=== PATIENT | female | born 1945 | race Caucasian/White ===

== ENCOUNTER 2017-09-18 19:01 | Inpatient (IN) ==
--- NOTE | 2017-09-18 19:14 | Emergency Department Note ---
Disposition Clinical Impression: NSTEMI (non-ST elevated myocardial infarction) Chest pain Qualifiers: Chest pain type: other chest pain Qualified Code(s): R07.89 - Other chest pain Disposition: Admitted As Inpatient Condition: Fair Time of Disposition: 23:13 Chest Pain HPI - General Chief Complaint: ED Chest Pain Stated Complaint: cp/right arm/right shoulder Time Seen by Provider: 09/18/17 19:04 Source: patient, EMS Mode of arrival: EMS Limitations: no limitations Vital Signs Reviewed: Yes Nursing Notes Reviewed: Yes - History of Present Illness HPI Narrative: Patient presenting to the ED via EMS and was seen and evaluated immediately upon arrival. Patient presenting with the chief complaint of chest pain and right arm pain. Patient was just admitted to the hospital last week for a heart catheter and stent placement. After independent medical record review. Patient is scheduled for a more extensive For a LAD lesion with possible CABG. She states that she was discharged home and felt okay until earlier this evening when she started developing a heavy tightness in her chest. She states that there is a separate pain in her right shoulder and shoulder blade. This radiating down her arm. She states that it is associated with the pain but that the shoulder pain was going on before she needed her stent, so she is not sure of this is related to her heart again or not. She has had no swelling in the arm or changes in color or sensation. There is no weakness. States she feels like if she could move her shoulder blade out of place that it would help. She states that she feels slightly nauseated at times but otherwise has been feeling well. Severity scale (1-10): 10 - Related Data Home Medications Medication Instructions Recorded Confirmed Aspirin [Adult Low Dose Aspirin EC] 81 mg PO DAILY 03/09/16 09/18/17 Furosemide [Lasix] 20 mg PO DAILY PRN 03/09/16 09/18/17 Insulin Glargine [Lantus] 90 unit SQ QAM 03/09/16 09/18/17 Levothyroxine Sodium [Tirosint] 125 mcg PO QAM 03/09/16 09/18/17 Insulin Glargine [Lantus] 55 unit SQ QPM 09/10/17 09/18/17 Previous Rx's Medication Instructions Recorded Atorvastatin [Lipitor] 80 mg PO HS 30 Days #30 tablet 09/13/17 Carvedilol [Coreg] 12.5 mg PO BIDWM 30 Days #60 tablet 09/13/17 Lisinopril-HCTZ 10-12.5 [Prinzide 1 each PO DAILY #30 tablet 09/13/17 10-12.5] Ticagrelor [Brilinta] 90 mg PO BID #60 tablet 09/13/17 amLODIPine [Norvasc] 10 mg PO DAILY 30 Days #30 tablet 09/13/17 Allergies Allergy/AdvReac Type Severity Reaction Status Date / Time Latex, Natural Rubber AdvReac Nausea Verified 09/18/17 19:05 morphine AdvReac Vomiting Verified 09/18/17 19:05 IV Dye AdvReac Vomiting Uncoded 09/18/17 19:05 Constitutional: Denies: fever Eyes: Denies: vision change Cardiovascular: Reports: chest pain. 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 Absent: normal inspection - Chest Chest inspection: Present: normal inspection, symmetric chest wall rise - Respiratory Respiratory exam: Present: normal lung sounds bilaterally - Cardiovascular Cardiovascular exam: Present: regular rate, normal rhythm, normal heart sounds - Abdominal Exam Abdominal exam: Present: soft, Non-Tender. Absent: tenderness, distention, guarding, rebound, rigidity - Extremities Exam Extremities exam: Present: tenderness (Patient has diffuse nonspecific tenderness to her right arm extending from her shoulder down to her wrist. There are a few small hematomas from previous IV draws. There is no crepitus, erythema, warmth or signs of trauma.) - Neurological Exam Neurological exam: Present: alert, oriented X3 - Psychiatric Psychiatric exam: Present: normal affect, normal mood - Skin Skin exam: Present: warm, dry, intact, normal color Course Course Narrative: 72-year-old female presenting for chest pain and right arm pain. Had a heart catheter a week ago with stent placement, but needs further PCI to her LAD. We will certainly get a chest pain workup and admit. Patient had aspirin via EMS. She also received nitroglycerin EMS - Reevaluation(s) Reevaluation #1: Patient has an elevation in troponin, already had aspirin via EMS. We will get red, approximately ultrasound due to pain to rule out thrombosis. Ultrasound reportedly negative. We will admit to the hospitalist service. Vital Signs Temperature 98.2 F 09/18/17 19:05 Pulse Rate 70 09/18/17 19:05 Respiratory Rate 20 09/18/17 19:05 Blood Pressure 205/106 09/18/17 19:05 O2 Sat by Pulse Oximetry 99 09/18/17 19:05 Temperature 98.0 F 09/19/17 03:12 Pulse Rate 74 09/19/17 03:12 Respiratory Rate 20 09/19/17 03:12 Blood Pressure 179/82 09/19/17 03:12 O2 Sat by Pulse Oximetry 92 09/19/17 03:12 Oxygen Delivery Oxygen Delivery Room Air Chest Pain - Medical Records Medical records reviewed: Yes I reviewed the patient's medical records. - Lab Data Lab results reviewed: Yes I reviewed the patient's lab results. Result diagrams: 09/18/17 19:32 09/19/17 01:01 Lab Results 09/18/17 09/18/17 09/18/17 Range/Units 19:32 19:32 19:32 WBC 8.4 (4.3-11.1) K/mcL RBC 4.44 (3.82-4.97) M/mcL Hgb 12.9 D (11.5-15.4) g/dL Hct 39.2 (35.3-44.9) % MCV 88.3 (83.0-100.0) fL MCH 29.1 (28.0-33.3) pg MCHC 32.9 (31.6-35.5) g/dL RDW 13.1 (11.5-14.5) % Plt Count 250 (140-400) K/mcL MPV 11.2 (9.4-12.4) fL Immature Gran % 0.5 (0-4) % Seg Neutrophils % 70.3 % Lymphocytes % 16.2 % Monocytes % 9.2 % Eosinophils % 3.4 % Basophils % 0.4 % Neutrophils # 5.9 (1.6-8.9) K/mcL Lymphocytes # 1.4 (0.6-4.6) K/mcL Monocytes # 0.8 (0.0-1.3) K/mcL Eosinophils # 0.3 (0.0-0.6) K/mcL Basophils # 0.0 (0.0-0.2) K/mcL Immature Plt Fraction 6.3 H (1.1-6.1) % PT 11.2 (9.4-12.1) Seconds INR 1.0 APTT 29.1 (26.0-36.0) Seconds Sodium (136-145) mEq/L Potassium (3.5-4.5) mEq/L Chloride (98-109) mEq/L Carbon Dioxide (19-29) mEq/L BUN (7-20) mg/dL Creatinine (0.57-1.11) mg/dL Est GFR ( Amer) (> 60) Est GFR (Non-Af Amer) (> 60) BUN/Creatinine Ratio (6-26) Glucose (70-99) mg/dL Calculated Osmolality (280-300) Calcium (8.6-10.8) mg/dL Troponin I (0-0.03) ng/mL B-Natriuretic Peptide 38 (0-100) pg/mL Urine Color (Yellow) Urine Clarity (Clear) Urine pH (5.0-8.0) pH Units Ur Specific [place] (1.010-1.025) Urine Protein (Neg-Trace) mg/dL Urine Glucose (UA) (Normal) mg/dL Urine Ketones (Negative) mg/dL Urine Blood (Negative) Urine Nitrite (Negative) Urine Bilirubin (Negative) Urine Urobilinogen (Normal) mg/dL Ur Leukocyte Esterase (Negative) Urine Microscopic RBC (0-3) per hpf Urine Microscopic WBC (0-3) per hpf Ur Squamous Epith Cells (None-Few) per lpf Urine Bacteria (None-Few) per hpf Hyaline Casts (None-Few) per lpf Ur Culture Indicated? (NO) 09/18/17 09/18/17 09/18/17 Range/Units 19:32 19:32 23:05 WBC (4.3-11.1) K/mcL RBC (3.82-4.97) M/mcL Hgb (11.5-15.4) g/dL Hct (35.3-44.9) % MCV (83.0-100.0) fL MCH (28.0-33.3) pg MCHC (31.6-35.5) g/dL RDW (11.5-14.5) % Plt Count (140-400) K/mcL MPV (9.4-12.4) fL Immature Gran % (0-4) % Seg Neutrophils % % Lymphocytes % % Monocytes % % Eosinophils % % Basophils % % Neutrophils # (1.6-8.9) K/mcL Lymphocytes # (0.6-4.6) K/mcL Monocytes # (0.0-1.3) K/mcL Eosinophils # (0.0-0.6) K/mcL Basophils # (0.0-0.2) K/mcL Immature Plt Fraction (1.1-6.1) % PT (9.4-12.1) Seconds INR APTT (26.0-36.0) Seconds Sodium 138 (136-145) mEq/L Potassium 3.5 (3.5-4.5) mEq/L Chloride 103 (98-109) mEq/L Carbon Dioxide 24 (19-29) mEq/L BUN 18 (7-20) mg/dL Creatinine 1.35 H (0.57-1.11) mg/dL Est GFR ( Amer) 47 L (> 60) Est GFR (Non-Af Amer) 38 L (> 60) BUN/Creatinine Ratio 13 (6-26) Glucose 122 H (70-99) mg/dL Calculated Osmolality 289 (280-300) Calcium 9.3 (8.6-10.8) mg/dL Troponin I 0.11 H* (0-0.03) ng/mL B-Natriuretic Peptide (0-100) pg/mL Urine Color Yellow (Yellow) Urine Clarity Clear (Clear) Urine pH 6.0 (5.0-8.0) pH Units Ur Specific [place] 1.017 (1.010-1.025) Urine Protein 100 H (Neg-Trace) mg/dL Urine Glucose (UA) Normal (Normal) mg/dL Urine Ketones Negative (Negative) mg/dL Urine Blood Negative (Negative) Urine Nitrite Negative (Negative) Urine Bilirubin Negative (Negative) Urine Urobilinogen Normal (Normal) mg/dL Ur Leukocyte Esterase Negative (Negative) Urine Microscopic RBC 0-3 (0-3) per hpf Urine Microscopic WBC 0-3 (0-3) per hpf Ur Squamous Epith Cells Many H (None-Few) per lpf Urine Bacteria None Seen (None-Few) per hpf Hyaline Casts None Seen (None-Few) per lpf Ur Culture Indicated? NO (NO) - Radiology Data Radiology results reviewed: Yes I reviewed the patient's radiology results. - EKG Data EKG attestation: Yes I reviewed and interpreted this EKG. EKG results narrative: Sinus rhythm, rate 70, MO interval 190, QRS 86, QTC 417, normal axis, no acute ischemic changes. S.B.A.R. - S.B.A.R. Situation: Demographics, MOA Background: Presenting Complaint, Relevant PMH, Meds, & Allergies Assessment: Vital Signs, Course and respsone to treatment, Exam Concerns, Patient/Family Expectation, Pertinant Lab Results, Outstanding Labs Recommendation: Barrier(s) to disposition, Recommendation based on pending studies, treatments, or consults S.B.A.R. Report Given to: Hospitalist service S.B.A.Burke Repor Time: 23:14 Attestation Statement - Attestation Attestation: I examined this patient and my medical decision-making was reviewed with the Resident Physician. I agree with the documented findings, disposition and treatment plan as described except to the extent set forth below. Chest pain, recent angioplasty. She did have 1 lesion that was not amenable to stenting. She is scheduled to be stented next week. Plan admit for possible anginal colon to an ACS rule out.
[2017-09-18 19:45] LABS: Basophils % 0.4 %; Eosinophils # 0.3 K/mcL (0.0-0.6); Eosinophils % 3.4 %; Hematocrit 39.2 % (35.3-44.9); Immature Granulocytes % 0.5 % (0-4); Immature Platelets 6.3 % (1.1-6.1); Lymphocytes # 1.4 K/mcL (0.6-4.6); Lymphocytes % 16.2 %; Mean Corpuscular HGB Conc 32.9 g/dL (31.6-35.5); Mean Corpuscular Hemoglobin 29.1 pg (28.0-33.3); Mean Corpuscular Volume 88.3 fL (83.0-100.0); Mean Platelet Volume 11.2 fL (9.4-12.4); Monocytes # 0.8 K/mcL (0.0-1.3); Monocytes % 9.2 %; Neutrophils # 5.9 K/mcL (1.6-8.9); Platelet Count 250 K/mcL (140-400); Red Blood Count 4.44 M/mcL (3.82-4.97); Red Cell Distribution Width 13.1 % (11.5-14.5); Segmented Neutrophils % 70.3 %
[2017-09-18 19:47] LABS: Hemoglobin 12.9 g/dL (11.5-15.4)
[2017-09-18 19:51] LABS: Prothrombin Time 11.2 Seconds (9.4-12.1)
[2017-09-18 19:53] LABS: Activated Partial Thrombo Time 29.1 Seconds (26.0-36.0)
[2017-09-18 19:58] LABS: Calcium 9.3 mg/dL (8.6-10.8); Potassium 3.5 mEq/L (3.5-4.5)
[2017-09-18] MEDS ORDERED: Ondansetron 4 MG/2 ML VIAL IVP ONE (20:17)
[2017-09-18] MEDS ORDERED: *HR* HYDROmorphone (PF) 1 MG/ML SYRINGE IVP ONE (20:17)
[2017-09-18 23:10] LABS: Bilirubin,Urine Negative (Negative); Blood,Urine Negative (Negative); Clarity,Urine Clear (Clear); Color,Urine Yellow (Yellow); Glucose,Urine (UA) Normal (Normal); Ketones,Urine Negative (Negative); Leukocyte Esterase,Urine Negative (Negative); Nitrite,Urine Negative (Negative); Protein,Urine 100 mg/dL (Neg-Trace); Specific Gravity,Urine 1.017 (1.010-1.025); Urobilinogen,Urine Normal (Normal)
[2017-09-18 23:12] LABS: Bacteria,Urine None Seen per hpf (None-Few); Hyaline Casts,Urine None Seen per lpf (None-Few); RBC,Urine 0-3 per hpf (0-3); Squamous Epithelial Cell,Urine Many per lpf (None-Few); WBC,Urine 0-3 per hpf (0-3)
[2017-09-19] MEDS ORDERED: *HR* Heparin 5,000 UNIT/ML VIAL IVP PRN ×2 (00:43)
[2017-09-19] MEDS ORDERED: Naloxone 0.4 MG/ML INJ IVP PRN (00:43)
[2017-09-19] MEDS ORDERED: Nitroglycerin 0.4 MG TAB.SUBL SL PRN (00:43)
[2017-09-19] MEDS ORDERED: *HR* HYDROmorphone (PF) 1 MG/ML SYRINGE IVP PRN (00:43)
[2017-09-19] MEDS ORDERED: Ondansetron 4 MG/2 ML VIAL IVP PRN (00:43)
[2017-09-19] MEDS ORDERED: Acetaminophen 325 MG TABLET PO PRN (00:43)
[2017-09-19] MEDS ORDERED: Heparin 25,000 UNIT/500 ML D5W 25,000 UNIT/500 ML MLS IVC SCH (00:45)
[2017-09-19] MEDS ORDERED: Furosemide 20 MG TABLET PO PRN (00:53)
--- NOTE | 2017-09-19 00:59 | Internal Med History&Physical ---
Date of Encounter: 09/19/17 Time of Encounter: 00:57 Assessment and Plan (1) Chest pain Current visit: Yes Status: Acute With elevated troponins, consider possible non-STEMI History of CAD with LAD lesion. Start heparin drip, may discontinue after evaluation by cardiology (call needs to be placed in the morning) Continue aspirin, Brilinta, carvedilol, Lipitor, nitroglycerin as needed Omeprazole for GI prophylaxis and heparin drip for DVT prophylaxis. The patient will be admitted for observation. Full code. Time spent on this admission 40 minutes. 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; 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; Z79.4 - 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 supervisor ( current) use of insulin (3) Elevated troponin Current visit: No Status: Acute (4) Right shoulder pain Current visit: No Status: Chronic Dilaudid as needed Qualifiers: Chronicity: chronic Qualified Code(s): M25.511 - Pain in right shoulder; G89.29 - Other chronic pain; G89.29 - Other chronic pain (5) Chronic kidney disease Current visit: No Status: Chronic Qualifiers: Chronic kidney disease stage: stage 3 (moderate) Qualified Code(s): N18.3 - Chronic kidney disease, stage 3 (moderate) (6) Hypertension Current visit: Yes Status: Acute Continue blood pressure medications from home Qualifiers: Hypertension type: essential hypertension Qualified Code(s): I10 - Essential (primary) hypertension Internal Medicine - H&P: HPI Chief complaint: Chest pain Admitted From: Emergency Dept History of present illness: Ms. Jay is a 72 year old female with a past medical history of CAD status post stents was recently discharged from this hospital on 09/13/2017 where she was treated for non-STEMI. On September 12 she had a cardiac catheterization where a CHRISTIN was placed on the left circumflex and received PTCA to the mid LAD. Apparently, she required to have another heart catheterization to take care of her LAD lesion which was scheduled for the seventh of this month. The patient complain of right shoulder pain but also chest pressure 3 out of 10 in intensity. Her troponin is 0.11, EKG did not show any acute changes. Describes chest tightness/very heavy. Also a DVT was ruled out for the right upper extremity with venous duplex, final report is pending. Denies any other complaint Past Med Surg Social Fam HX - Past Medical History Medical history: arthritis, coronary artery disease (Status post stents), diabetes (Insulin-dependent), hyperlipidemia, hypertension, thyroid disease ( Hypothyroidism), other (Chronic kidney disease stage III, fibromyalgia, diastolic dysfunction) Psychiatric history: no psych history - Past Surgical History Surgical History: carotid endarterectomy, cholecystectomy, hysterectomy, other ( Right knee replacement, carpal tunnel syndrome surgery,) - Social History Smoking Status: Former smoker Smokeless Tobacco Status: No Alcohol use: none Drug use: none - Family History Father Hx Family Cancer: Yes Hx Family Endocrine Disorder: Yes (diabetes) Hx Family Neurologic Disorders: Yes (CVA) Mother Hx Family Cardiac Disorders: Yes Hx Family Cancer: Yes - Additional Family History Additional family history: Father with diabetes and CVA Internal Medicine - H&P: Meds Aspirin [Adult Low Dose Aspirin EC] 81 mg PO DAILY 03/09/16 [History] Furosemide [Lasix] 20 mg PO DAILY PRN 03/09/16 [History] Insulin Glargine [Lantus] 90 unit SQ QAM 03/09/16 [History] Levothyroxine Sodium [Tirosint] 125 mcg PO QAM 03/09/16 [History] Insulin Glargine [Lantus] 55 unit SQ QPM 09/10/17 [History] Atorvastatin [Lipitor] 80 mg PO HS 30 Days #30 tablet 09/13/17 [Rx] Carvedilol [Coreg] 12.5 mg PO BIDWM 30 Days #60 tablet 09/13/17 [Rx] Lisinopril-HCTZ 10-12.5 [Prinzide 10-12.5] 1 each PO DAILY #30 tablet 09/13/17 [ Rx] Ticagrelor [Brilinta] 90 mg PO BID #60 tablet 09/13/17 [Rx] amLODIPine [Norvasc] 10 mg PO DAILY 30 Days #30 tablet 09/13/17 [Rx] 3 Allergy/AdvReac Type Severity Reaction Status Date / Time Latex, Natural Rubber AdvReac Nausea Verified 09/18/17 19:05 morphine AdvReac Vomiting Verified 09/18/17 19:05 IV Dye AdvReac Vomiting Uncoded 09/18/17 19:05 All Systems PM: A 10-system review of systems was performed and is negative for pertinent findings except as documented above in the HPI. Review of systems: No abdominal pain, shortness of breath. Other systems out of the 10 reviewed were negative - Constitutional Vitals: Temp Pulse Resp BP Pulse Ox 98.0 F 61 16 150/76 97 09/19/17 00:22 09/19/17 00:22 09/19/17 00:22 09/19/17 00:22 09/19/17 00:22 General appearance: Present: A&O X 3, morbidly obese - Head Head exam: Present: atraumatic, normocephalic - Eye Eye exam: Present: PERRL, conjuntiva pink, sclera anicteric Pupils: Present: PERRL - Neck Neck exam general surgery: Present: supple, trachea midline. Absent: lymphadenopathy - Respiratory Respiratory exam: Present: CTAB. Absent: accessory muscle use, rales, rhonchi, wheezes - Cardiovascular Cardiovascular exam: Present: RRR, +S1, +S2. Absent: diastolic murmur, gallop, rubs, systolic murmur - GI/Abdominal GI/Abdominal exam: Present: normal bowel sounds, soft, no peritoneal signs. Absent: distended, tenderness - Extremities Exam Extremities exam: Present: warm, radial pulses palpable and symmetrical. Absent : calf tenderness, cyanotic, pedal edema - Neurological Exam Neurological exam: Present: CN II-XII intact, oriented X3, no focal deficits. Absent: pronater drift, facial droop, speech deficit - Skin Skin exam: Present: dry, intact Internal Med - H&P Results - Labs CBC & Chem 7: 09/18/17 19:32 09/18/17 19:32
[2017-09-19 01:29] LABS: Chol/HDL Ratio 2.8 (0-4.9)
[2017-09-19] MEDS: 0.9 % Sodium Chloride 1,000 ML IVC SCH ×3 (02:31→15:37)
--- NOTE | 2017-09-19 08:03 | Electrocardiograph Report ---
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
--- NOTE | 2017-09-19 08:07 | Electrocardiograph Report ---
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
[2017-09-19] MEDS ORDERED: Insulin DETEMIR 100 UNIT/ML X5UNITS SQ SCH ×2 (09:00→18:00)
[2017-09-19] MEDS ORDERED: amLODIPine 5 MG TABLET PO SCH (09:00)
[2017-09-19] MEDS ORDERED: *HR* Ticagrelor 90 MG TABLET PO SCH (09:00)
[2017-09-19] MEDS ORDERED: Aspirin Enteric Coated 81 MG Tablet PO SCH (09:00)
[2017-09-19] MEDS ORDERED: NON-FORMULARY MEDICATION 1 EACH EACH (Insulin Glargine [Lantus] 90 UNIT) SQ SCH (09:00)
--- NOTE | 2017-09-19 09:26 | Cardiology Consult Note ---
Date of Encounter: 09/19/17 Time of Encounter: 08:30 Assessment and Plan (1) Essential hypertension Current Visit: No Status: Chronic Per cardiology: -Known HTN. Recent admission for hypertensive emergency. -BP on admission 216/103. -Current SBP 170s. -States has not been monitoring BP at home. -On norvasc 10mg daily, coreg 12.5mg BID, lisinopril/HCTZ 10/12.5mg. -Will increase lisinopril to 20mg daily. Will given extra dose of 10mg of lisinopril now to total 20mg today. -Will continue to monitor. (2) Elevated troponin Current Visit: No Status: Acute Per cardiology: -Troponins 0.11, 0.08, 0.05 in the setting of hypertension. -BP 216/103 cde admission. -On heparin drip. -Reports right arm/shoulder pain and pain across chest. States similar to previous symptoms. -Denies current pain. -ECG with no ischemic changes. -Recommended for staged PCI on 09/25/17. -Creatinine 1.31, about baseline. -No not suspect NSTEMI, suspect demand ischemia related to above. Patient is enrolled in cardiac rehab from previous admission. -Will review [facility] films with , possible LHC today or tomorrow, pending better BP control. -Will given one time dose of solu-medrol now for IVP dye allergy, in case able to do LHC today. -Will start imdur daily. (3) CAD (coronary artery disease) Current Visit: Yes Status: Chronic Per cardiology: -Known CAD with LHC 09/12/17 with 95% and 90% stenosis mid LAD with balloon angioplasty with residual stenosis of 80% and 85%, 95% mid circumflex with CHRISTIN placed, 50% mid RCA. Recommended for staged PCI with athrectomy, scehduled on . -TTE 09/11/17 with LVEF 60-65%, mild concentric LVH, mild diastolic dysfunction , mild MR, mild TR, all wall segments with normal motion. -On asa, statin, beta baldomero, and brilinta. -Denies missed doses of medications. -Educated on importance of dual anti-platelet therapy uninterrupted for at least one year. Patient states understanding. -Possible LHC today pending film review and better BP control. Qualifiers: Coronary Disease-Associated Artery/Lesion type: [place] artery [place] vs. transplanted heart: [place] heart Associated angina: with unspecified angina Qualified Code(s): I25.119 - Atherosclerotic heart disease of [place] coronary artery with unspecified angina pectoris Discussion w patient/family: The assessment and plan as outlined above was discussed with the patient who expressed understanding and agreement. All questions were answered. Thank you for involving us in the care of your patient. Please call with any questions. Discussed and reviewed with . History of Present Illness Consult date: 09/19/17 Requesting physician: Warren Ruffin Consult reason: elevated troponin Chief complaint: right arm pain History of present illness: Ms. Jay is a 72 year old female with a relevant past medical history of CAD s/ p recent PCI, DM, hypothyroidism, HTN, "irregular heart beat," and carotid stenosis. Patient recently underwent LHC and was recommended for staged PCI. Procedure was scheduled for 09/25/17. Patient states she was at home yesterday when she had the same symptoms as last week. Patient states she was sitting when she had right arm and shoulder pain. Patient states mild pain across chest. Patient denies aggravating or alleviating symptoms. Patient denies exertional symptoms since discharge. Patient reports she has not been checking her BP at home. Patient denies current chest pain or right arm/shoulder pain. Patient denies increased shortness of breath and states her fatigue has been improving since discharge. Patient denies missing any doses of dual anti- platelet therapy. Past Med Surg Social Fam HX - Past Medical History Attestation: Yes The following information was validated with the patient. Source: patient, old records reviewed Medical history: arthritis, coronary artery disease, diabetes, hyperlipidemia, hypertension, thyroid disease Psychiatric history: no psych history - Past Surgical History Surgical History: carotid endarterectomy, hysterectomy - Social History Smoking Status: Former smoker Smokeless Tobacco Status: No Alcohol use: none Drug use: none - Family History Father Hx Family Cancer: Yes Hx Family Endocrine Disorder: Yes (diabetes) Hx Family Neurologic Disorders: Yes (CVA) Mother Hx Family Cardiac Disorders: Yes Hx Family Cancer: Yes Medications and Allergies Aspirin [Adult Low Dose Aspirin EC] 81 mg PO DAILY 03/09/16 [History] Furosemide [Lasix] 20 mg PO DAILY PRN 03/09/16 [History] Insulin Glargine [Lantus] 90 unit SQ QAM 03/09/16 [History] Levothyroxine Sodium [Tirosint] 125 mcg PO QAM 03/09/16 [History] Insulin Glargine [Lantus] 55 unit SQ QPM 09/10/17 [History] Atorvastatin [Lipitor] 80 mg PO HS 30 Days #30 tablet 09/13/17 [Rx] Carvedilol [Coreg] 12.5 mg PO BIDWM 30 Days #60 tablet 09/13/17 [Rx] Lisinopril-HCTZ 10-12.5 [Prinzide 10-12.5] 1 each PO DAILY #30 tablet 09/13/17 [ Rx] Ticagrelor [Brilinta] 90 mg PO BID #60 tablet 09/13/17 [Rx] amLODIPine [Norvasc] 10 mg PO DAILY 30 Days #30 tablet 09/13/17 [Rx] 3 Allergy/AdvReac Type Severity Reaction Status Date / Time Latex, Natural Rubber AdvReac Nausea Verified 09/18/17 19:05 morphine AdvReac Vomiting Verified 09/18/17 19:05 IV Dye AdvReac Vomiting Uncoded 09/18/17 19:05 All Systems Review: A 10-system review of systems was performed and is negative for pertinent findings except as documented above in the HPI. - Cardiovascular Cardiovascular: as per HPI, chest pain at rest - Musculoskeletal Musculoskeletal: other (Right arm/shoulder pain) Physical Examination Vital Signs, Last 4 Hours Temp Pulse Resp BP Pulse Ox 09/19/17 08:51 97 09/19/17 06:52 98.4 F 72 16 173/84 97 General: Conversant, No Apparent Distress HEENT: Atraumatic, Normocephaly, Mucus Membranes Moist Neck: No JVD, Normal carotid pulses Cardiac: Reg Rate and Rhythm, Normal S1 and S2, No Murmur Lungs: Normal Breath Sounds, No Wheeze, Rales, Rhonchi Neuro: Alert and responsive, No focal deficits noted Abdomen: Soft, Non-Tender Skin: No rashes noted on visualized skin Musculoskeletal: No Chest Wall Tenderness Extremities: No Clubbing, No Cyanosis, No Edema, Normal Pulses Results 09/18/17 19:32 09/19/17 01:01 Lab Results Impressions Chest X-Ray 09/18/17 19:09 IMPRESSION: No acute process. D/ / Dewayne Tripp MD / Dewayne Tripp MD Interpreting Provider: Dewayne Tripp MD Active Medications Acetaminophen (Tylenol) 650 mg PO Q6HR PRN PRN Reason: Mild Pain (1-3) Stop: 03/21/18 00:44 Amlodipine Besylate (Norvasc) 10 mg PO DAILY PATRICE PRN Reason: Protocol Stop: 03/21/18 09:01 Last Admin: 09/19/17 08:48 Dose: 10 mg Aspirin (Aspirin Ec) 81 mg PO DAILY [facility] Stop: 03/21/18 09:01 Last Admin: 09/19/17 09:08 Dose: 81 mg Atorvastatin Calcium (Lipitor) 80 mg PO HS [facility] Stop: 03/21/18 21:01 Carvedilol (Coreg) 12.5 mg PO BIDWM PATRICE PRN Reason: Protocol Stop: 03/21/18 08:01 Last Admin: 09/19/17 08:48 Dose: 12.5 mg Lisinopril/HCTZ (Prinzide 10-12.5) 1 each PO DAILY [facility] Stop: 03/21/18 09:01 Last Admin: 09/19/17 08:48 Dose: 1 each Heparin Sodium (Porcine) (Heparin) 4,000 unit IVP Q6HR PRN PRN Reason: SEE COMMENTS Stop: 03/21/18 00:44 Heparin Sodium (Porcine) (Heparin) 2,000 unit IVP Q6H PRN PRN Reason: SEE COMMENTS Stop: 03/21/18 00:44 Hydromorphone HCl (Dilaudid) 0.5 mg IVP Q4HR PRN PRN Reason: Severe Pain (7-10) Stop: 03/21/18 00:44 Sodium Chloride (0.9 % Sodium Chloride) 1,000 mls @ 75 mls/hr IVC .[id number] [facility] Stop: 03/21/18 00:46 Last Admin: 09/19/17 02:31 Dose: 75 mls/hr Heparin Sodium/Dextrose (Heparin 25,000 Unit/500 Ml D5w) 25,000 unit in 500 mls @ 20 mls/hr IVC .Q24H PATRICE; 11.3 UNIT/KG/HR PRN Reason: Protocol Stop: 03/21/18 00:46 Last Admin: 09/19/17 02:31 Dose: 11.3 unit/kg/hr, 20 mls/hr Insulin Detemir (Levemir) 55 unit SQ QPM [facility] Stop: 03/21/18 18:01 Insulin Detemir (Levemir) 90 unit SQ QAM [facility] Stop: 03/21/18 09:01 Last Admin: 09/19/17 09:08 Dose: Not Given Levothyroxine Sodium (Synthroid) 125 mcg PO QAM [facility] Stop: 03/21/18 09:01 Last Admin: 09/19/17 08:48 Dose: 125 mcg Naloxone HCl (Narcan) 0.4 mg IVP Q2MIN PRN PRN Reason: Opioid Reversal Stop: 03/21/18 00:44 Nitroglycerin (Nitroglycerin) 0.4 mg SL Q5MIN PRN PRN Reason: Chest Pain Stop: 03/21/18 00:44 Omeprazole (Prilosec) 20 mg PO DAILY@0630 [facility] PRN Reason: Protocol Stop: 03/21/18 06:31 Last Admin: 09/19/17 05:57 Dose: Not Given Ondansetron HCl (Zofran) 4 mg IVP Q8HR PRN PRN Reason: Nausea And Vomiting Stop: 03/21/18 00:44 Ticagrelor (Brilinta) 90 mg PO BID [facility] Stop: 03/21/18 09:01 Last Admin: 09/19/17 08:48 Dose: 90 mg Laboratory Tests 09/12/17 09/13/17 09/13/17 04:35 04:35 15:55 Hgb Creatinine 1.24 H 1.60 H 1.41 H Troponin I Triglycerides Cholesterol LDL Cholesterol, Calc HDL Cholesterol 09/18/17 09/18/17 09/18/17 19:32 19:32 19:32 Hgb 12.9 D Creatinine 1.35 H Troponin I 0.11 H* Triglycerides Cholesterol LDL Cholesterol, Calc HDL Cholesterol 09/19/17 09/19/17 09/19/17 01:01 01:01 06:31 Hgb Creatinine 1.31 H Troponin I 0.08 H* 0.05 H* Triglycerides 96 Cholesterol 105 LDL Cholesterol, Calc 49 HDL Cholesterol 37 L - Imaging and Cardiology Chest Xray: report reviewed Echo: report reviewed Cardiac cath: report reviewed - EKG Interpretation EKG results cardiology: personally reviewed (ECG with SR, HR 70.), other ( Telemetry reviewed with average HR 61, SR. PVCs and PACs noted.) Consult Discharge Plan - Plan Referrals: Cayetano Cardona, [Primary Care Provider] -
[2017-09-19] MEDS ORDERED: methylPREDNISolone 125 MG/2 ML VIAL IVP ONE (09:40)
[2017-09-19] MEDS ORDERED: Isosorbide MONOnitrate (24 HR) 60 MG TAB.ER.24H PO SCH (09:45)
--- NOTE | 2017-09-19 14:47 | Internal Med Progress Note ---
Date of Encounter: 09/19/17 Time of Encounter: 14:13 - Assessment and plan (1) Unstable angina Current Visit: Yes Status: Acute Assessment and plan: Antonia Jay is a 72-year-old female with past medical history CAD with recent intervention, hypertension and diabetes who presented to [facility] on 09/18/2017 with complaints of right chest and arm pain. She was started on a heparin drip and admitted for cardiology evaluation. 1. Unstable angina: Has known CAD; [facility] 09/12/2017 with a CHRISTIN to mid circumflex and balloon angioplasty to LAD. Staged PCI with atherectomy planned at that time is scheduled for 09/25/17. However now patient with recurrent chest pain with radiation to right arm; similar to presentation when she was found to have obstructive CAD. Heparin drip started on arrival. Troponin peaked at 0.11 and trended down. His case with cardiology and patient may need to be transferred to tertiary care facility as atherectomy with CSI is recommended and services and offer here at [place]. Continue heparin drip for now. Monitor on telemetry. Await cardiology final recommendations. 2. Hypertensive urgency: With SBP's and 200s on arrival. Patient reports not taking BP medications at home BP improved with resuming home BP medication. Continue home BP meds, monitor BP and titrate PRN 3. CKD: per hx. Cr 1.3 which appears at baseline. Avoid nephrotoxic agents as possible. Monitor renal function 4. Diabetes: per hx. 08/2016 Hgb A1c 6.5%. Continue home long-acting insulin. Monitor blood sugar and titrate PRN. Hgb A1c pending 5. 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 Patient is new to me, information obtained from chart review and patient report. Patient says she is feeling much better today. No chest pain, no right arm pain. No shortness of breath. She tells me cardiology is planning left heart catheterization in the morning. - Constitutional Vitals: Temp Pulse Resp BP Pulse Ox 97.9 F 63 15 132/70 95 09/19/17 11:54 09/19/17 11:54 09/19/17 11:54 09/19/17 11:54 09/19/17 11:54 General appearance: Present: A&O X 3, morbidly obese, answers questions appropriately - Head Head exam: Present: atraumatic, normocephalic - Eye Eye exam: Present: PERRL, conjuntiva pink, sclera anicteric Pupils: Present: PERRL - Neck Neck exam general surgery: Present: supple, trachea midline. Absent: lymphadenopathy - Respiratory Respiratory exam: Present: CTAB. Absent: accessory muscle use, rales, rhonchi, wheezes - Cardiovascular Cardiovascular exam: Present: RRR, +S1, +S2. Absent: diastolic murmur, gallop, rubs, systolic murmur - GI/Abdominal GI/Abdominal exam: Present: normal bowel sounds, soft, no peritoneal signs. Absent: distended, tenderness - Extremities Exam Extremities exam: Present: warm, radial pulses palpable and symmetrical. Absent : calf tenderness, cyanotic, pedal edema - Neurological Exam Neurological exam: Present: CN II-XII intact, oriented X3, no focal deficits. Absent: pronater drift, facial droop, speech deficit - Skin Skin exam: Present: dry, intact Internal Medicine: Result - Labs CBC & Chem 7: 09/18/17 19:32 09/19/17 01:01 Labs: BMP 09/19/17 01:01 Sodium 138 Potassium 4.0 Chloride 103 Carbon Dioxide 26 BUN 16 Creatinine 1.31 H Glucose 99 Calcium 9.0 Cardiac Enzymes 09/19/17 09/19/17 Range/Units 01:01 06:31 Troponin I 0.08 H* 0.05 H* (0-0.03) ng/mL - ABG Interpretation ABG results: PT/INR, D-dimer PT 11.2 Seconds (9.4-12.1) 09/18/17 19:32 Consult Discharge Plan - Plan Referrals: Cayetano Cardona DO [Primary Care Provider] -
--- NOTE | 2017-09-19 15:01 | Event Note ---
Date of Encounter: 09/19/17 Time of Encounter: 14:59 - Cardiology Event Note Cath films reviewed with and who both state that CSI athrectomy would be a better option for this patient, which is not available at [place]. Discussed and reviewed with patient and discussed recommendations for transfer to facility that has CSI available. Patient agreeable for transfer. Discussed with LIZZY De León with the hospitalist group.
--- NOTE | 2017-09-19 15:21 | Discharge Summary ---
Date of Encounter: 09/19/17 Time of Encounter: 15:15 - Discharge Diagnosis (1) Unstable angina Priority: Primary Status: Acute Comments: Antonia Jay is a 72-year-old female with past medical history CAD with recent intervention, hypertension and diabetes who presented to [facility] on 09/18/2017 with complaints of right chest and arm pain. She was started on a heparin drip and admitted for cardiology evaluation. Patient was transferred to [facility] on 09/19/2017 for CSI atherectomy. 1. Unstable angina: Has known CAD; [facility] 09/12/2017 with CHRISTIN to mid circumflex and balloon angioplasty to LAD. Staged PCI with atherectomy to LAD planned at that time and was scheduled for 09/25/17. However now patient with recurrent chest pain with radiation to right arm; similar to presentation when she was found to have obstructive CAD. Heparin drip started on arrival. Troponin peaked at 0.11 and trended down. Cath films reviewed by and (Doctor Of Medicine) who recommend CSI athrectomy, which is not available at [place]. Case discussed with [facility] transfer center and patient is accepted to the [facility]. 2. Hypertensive urgency: With SBP's and 200s on arrival. Patient reports not taking BP medications at home. BP improved with resuming home BP medication. Continue home BP meds, monitor BP and titrate PRN 3. CKD: per hx. Cr 1.3 which appears at baseline. Avoid nephrotoxic agents as possible. Monitor renal function 4. Diabetes: per hx. 08/2016 Hgb A1c 6.5%. Continue home long-acting insulin. Monitor blood sugar and titrate PRN. Hgb A1c pending 5. 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 Priority: Primary Status: Chronic - Discharge Medications Home Medications: Aspirin [Adult Low Dose Aspirin EC] 81 mg PO DAILY 03/09/16 [History] Furosemide [Lasix] 20 mg PO DAILY PRN 03/09/16 [History] Insulin Glargine [Lantus] 90 unit SQ QAM 03/09/16 [History] Levothyroxine Sodium [Tirosint] 125 mcg PO QAM 03/09/16 [History] Insulin Glargine [Lantus] 55 unit SQ QPM 09/10/17 [History] Atorvastatin [Lipitor] 80 mg PO HS 30 Days #30 tablet 09/13/17 [Rx] Carvedilol [Coreg] 12.5 mg PO BIDWM 30 Days #60 tablet 09/13/17 [Rx] Lisinopril-HCTZ 10-12.5 [Prinzide 10-12.5] 1 each PO DAILY #30 tablet 09/13/17 [ Rx] Ticagrelor [Brilinta] 90 mg PO BID #60 tablet 09/13/17 [Rx] amLODIPine [Norvasc] 10 mg PO DAILY 30 Days #30 tablet 09/13/17 [Rx] Heparin 2,000 unit IVP Q6H PRN vial 09/19/17 [Rx] Heparin 4,000 unit IVP Q6HR PRN vial 09/19/17 [Rx] Allergies/Adverse Reactions: 3 Allergy/AdvReac Type Severity Reaction Status Date / Time Latex, Natural Rubber AdvReac Nausea Verified 09/18/17 19:05 morphine AdvReac Vomiting Verified 09/18/17 19:05 IV Dye AdvReac Vomiting Uncoded 09/18/17 19:05 Procedures/tests Complete & Pending: Procedures Performed prior 72 hours Category Date Time Status ECG 12 lead ECG [ECG] Routine Y 09/19/17 00:49 Completed ECG 12 lead ECG [ECG] Routine Y 09/20/17 07:00 Ordered EV limited echocardiogram Routine Y 09/19/17 00:43 Completed Date of admission: 09/18/17 23:46 Primary care physician: Cayetano Cardona DO Consults: 09/19/17 00:43 Consult to Cardiology [CONS] Routine Comment: Consulting Provider: Cardiology Lori Reason for Consult: elevated troponins Call Completed: No Discharging clinician: Genet Robles Anticipated date of discharge: 09/19/17 - Patient Status Disposition: Transfer Short-Term Hosp Condition: Good Functional capacity at discharge: uses cane/walker Overall status at discharge: patient is not back to baseline - Discharge Instructions Follow Up With: Cayetano Cardona DO [Primary Care Provider] - - Diet and Activity Activity: as per physical therapy Diet: diabetic diet, low fat, low cholesterol Interval History: See 09/19/2017 progress note for interval history. Patient transferred to [facility] - Time Spent with Patient Total time spent providing and/or coordinating discharge services: Greater than 30 minutes (41 minutes spent on discharge) - Constitutional Vitals: Temp Pulse Resp BP Pulse Ox 97.9 F 63 15 132/70 95 09/19/17 11:54 09/19/17 11:54 09/19/17 11:54 09/19/17 11:54 09/19/17 11:54 General appearance: Present: A&O X 3, morbidly obese, answers questions appropriately - Head Head exam: Present: atraumatic, normocephalic - Eye Eye exam: Present: PERRL, conjuntiva pink, sclera anicteric Pupils: Present: PERRL - Neck Neck exam general surgery: Present: supple, trachea midline. Absent: lymphadenopathy - Respiratory Respiratory exam: Present: CTAB. Absent: accessory muscle use, rales, rhonchi, wheezes - Cardiovascular Cardiovascular exam: Present: RRR, +S1, +S2. Absent: diastolic murmur, gallop, rubs, systolic murmur - GI/Abdominal GI/Abdominal exam: Present: normal bowel sounds, soft, no peritoneal signs. Absent: distended, tenderness - Extremities Exam Extremities exam: Present: warm, radial pulses palpable and symmetrical. Absent : calf tenderness, cyanotic, pedal edema - Neurological Exam Neurological exam: Present: CN II-XII intact, oriented X3, no focal deficits. Absent: pronater drift, facial droop, speech deficit - Skin Skin exam: Present: dry, intact
[2017-09-19 15:26] VITALS: BP 154/67
[2017-09-19] MEDS ORDERED: NON-FORMULARY MEDICATION 1 EACH EACH (Insulin Glargine [Lantus] 55 UNIT) SQ SCH (18:00)
[2017-09-20] MEDS ORDERED: Lisinopril-HCTZ 20-12.5mg TABLET PO SCH (09:00)
--- NOTE | 2017-09-21 19:02 | Electrocardiograph Report ---
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
== END 2017-09-19 19:07 | disposition critical access hospital (66) | DRG 281 ==
LOC: EMEROO 19:01 → 3BNU 19:01
PROVIDERS: ADMIT Internal Medicine; ATTEND Registered Nurse